=== PATIENT | female | born 1975 | race Caucasian/White ===

== ENCOUNTER → 2017-11-17 | Outpatient (REF) | payer OTHER ==
[2017-11-17 13:55] LABS: D-DIMER QUANT < 270.0 ng/ml (<500)
== END ==
LOC: M LAB REF 12:57
DX: J44.9 Chronic obstructive pulmonary disease, unspecified (principal)

== ENCOUNTER → 2017-12-18 | Outpatient (REF) | payer OTHER ==
[2017-12-18 22:51] LABS: CHLAMYDIA DNA AMPLIFICATION NEGATIVE (NEGATIVE); GC DNA AMPLIFICATION NEGATIVE (NEGATIVE)
== END ==
LOC: M SFHCLERA 17:08
DX: N91.2 Amenorrhea, unspecified (principal)

== ENCOUNTER → 2017-12-18 | Outpatient (CLI) | payer OTHER | LOC: M LRY 16:25 | DX: R06.02 Shortness of breath (principal) | CPT/HCPCS: 71046 ==

== ENCOUNTER → 2019-06-19 | Outpatient (CLI) | payer OTHER ==
[~2019-06-19] MED LIST: ACET500T15 PO; ADV250INH INH; ALBU17IN INH; ATOR1TAB19 PO; AUGM875T28 PO; BUSP10TA PO; CLEO300C2 PO; DOXY10CA PO; FLUO20CA19 PO; HAIRTAB5 PO; INSUDET SC; JANU100T PO; LEVO100I PO; LEVO137T14 PO; LEVO137T2 PO; LISI-1046 PO; MAPA500T2 PO; METF850T4 PO; MOTR200T44 PO; MULTCAP PO; OMEP10CASR PO; PRED20TA PO; PRED20TAB PO; PRENTAB43 PO; PRIL20CA9 PO; PROZ20CA11 PO; SALMDISK INH; SPIR1CAP INH; ZITH250T PO
--- NOTE | 2019-06-19 19:38 | REP ---
BILATERAL MAMMOGRAM WITH 3D TOMOSYNTHESIS. HISTORY: No family history of breast cancer. Samanta Xiao lifetime risk of breast cancer 9.8%. MLO and CC views of both breasts performed with 3D tomosynthesis. There are no prior studies. Well circumscribed nodule is seen posteriorly and inferiorly in the left breast. This measures 6 mm in maximum diameter. No other mass is seen. No clustered microcalcifications are seen. IMPRESSION: ACR 0 incomplete. There is a well circumscribed nodule measuring 6 mm in diameter in the posterior inferior left breast. Recommend spot compression views and ultrasound to further evaluate. BIRADS 0: BI-RADS/ACR category 0 mammogram, Incomplete: Need additional imaging evaluation and/or prior mammograms for comparison. This mammogram was interpreted with the aid of an FDA-approved computer-aided detection system. The patient states she/he had a clinical breast exam in 06/2019. The patient letter being requested is M0. Electronically Signed by Jasbir Almaguer MD 06/20/2019 03:37 P
== END ==
LOC: M WHC 13:34
PROVIDERS: ATTEND Nurse Practitioner Family
DX: Z12.31 Encounter for screening mammogram for malignant neoplasm of breast (principal); R92.8 Other abnormal and inconclusive findings on diagnostic imaging of breast

== ENCOUNTER → 2019-06-19 | Outpatient (REF) | payer OTHER ==
[2019-06-21 14:16] LABS: HPV HYBRID CAPTURE II Negative (Negative)
== END ==
LOC: M SFHCWAGY 14:21
PROVIDERS: ATTEND Nurse Practitioner Family
DX: Z12.4 Encounter for screening for malignant neoplasm of cervix (principal)

== ENCOUNTER → 2019-07-03 | Outpatient (CLI) | payer OTHER ==
--- NOTE | 2019-07-03 14:22 | REP ---
DIAGNOSTIC MAMMOGRAM LEFT BREAST WITH LEFT BREAST ULTRASOUND: Multiple spot compression views of the left breast are performed confirming the presence of a slightly lobulated nodule posteriorly at the 6-o'clock position of the left breast. Diameter is approximately 6 mm. No associated microcalcifications are seen. It is far posterior in the left breast. Real-time sonographic evaluation of the 6-o'clock region of the left breast does not demonstrate a discrete cystic or solid nodule. IMPRESSION: BIRADS 4: BI-RADS/ACR category 4 mammogram. Suspicious Abnormality - biopsy should be considered. ACR 4 suspicious. 6 mm nodule confirmed at 6-o'clock posterior left breast. The nodule is slightly lobulated. This could not be identified by ultrasound and is presumed to be solid. Stereotactic biopsy is recommended. Patient letter being requested is M4. Electronically Signed by Jasbir Almaguer MD 07/03/2019 04:59 P
== END ==
LOC: M RAD 12:39
PROVIDERS: ATTEND Nurse Practitioner Family
DX: Z12.31 Encounter for screening mammogram for malignant neoplasm of breast (principal); N63.25 Unspecified lump in the left breast, overlapping quadrants

== ENCOUNTER → 2019-08-16 | Outpatient (CLI) | payer OTHER ==
[~2019-08-16] MED LIST changes: +BASA100I SC; +LIDOCAINE 1% MDV 20ML VIAL As Ordered ONE; +RANI75TA52 PO
[2019-08-16 12:50] VITALS: BP 145/65
--- NOTE | 2019-08-16 15:13 | REP ---
Attempted stereotactic needle biopsy left breast. Diagnostic left breast mammography. History: Screening mammography June 19, 2019 and diagnostic mammography from July 03, 2019 were felt to be suspicious for a nodular density projecting inferiorly in the left breast. Stereotactic needle biopsy was recommended. No sonographic correlate had been found. Procedure: The patient was interviewed and informed consent was obtained. Stereotactic needle biopsy was first attempted from a medial lateral approach. Despite multiple activities director scouting views, we were not able to demonstrate the lesion in this approach. Following this a craniocaudal approach was attempted and again multiple activities director scouting views failed to demonstrate the nodule. At this point the procedure was terminated and a repeat craniocaudal and mediolateral oblique left mammogram were obtained. These did not show the target nodule. It has apparently regressed. Biopsy was therefore deferred. Impression: The target nodule is no longer visible mammographically. The biopsy therefore was deferred. Consider 6 month followup unilateral left breast mammogram. This mammogram was interpreted with the aid of an FDA-approved computer-aided detection system. Electronically Signed by Tito Cantu MD 08/16/2019 03:16 P
== END ==
LOC: M IRPRO 12:25
PROVIDERS: ATTEND Surgery
DX: N63.20 Unspecified lump in the left breast, unspecified quadrant (principal)

== ENCOUNTER → 2020-10-24 | Outpatient (CLI) | payer OTHER ==
[~2020-10-24] MED LIST changes: -FLUO20CA19 PO; +FLUO20CA22 PO; -LIDOCAINE 1% MDV 20ML VIAL As Ordered ONE; -LISI-1046 PO; +LISI2.5T2 PO
--- NOTE | 2020-10-24 16:49 | REP ---
INDICATION: R92.8 ABN LT BREAST SCREENING MAMMO,6 MO F/U. Mammography from June 19, 2019 showed a 6 mm well-circumscribed nodule at 6 o'clock in the posterior aspect of the left breast. Six-month follow-up. COMPARISON: Comparison mammography June 19, 2019, July 03, 2019. Comparison sonography July 03, 2019. TECHNIQUE: Diagnostic left breast mammography is carried out with 3D tomography and magnified focal spot-compression views. Targeted left breast sonography is repeated. This mammogram was interpreted with the aid of an FDA-approved computer-aided detection system. FINDINGS: Breast parenchyma remains predominantly fat replaced. The 6 mm well-circumscribed nodule identified on 19 June 2019 is again noted unchanged in the 1 year 5 month interval since that prior study. No other mammographic abnormality. The Volpara volumetric breast density pattern is a. Targeted ultrasound: Targeted left breast sonography is performed in the 5-7 o'clock position the left breast. Mildly heterogeneous fibroglandular background echotexture is seen. No cyst or mass is observed. Previous ultrasound was also negative. IMPRESSION: BIRADS/ACR category 3 probably benign left breast mammographic and sonographic findings. No change in 1 year 5 months in the previously identified 6 mm nodule at 6 o'clock in the left breast. This patient's Tyrer-Cuzick lifetime breast cancer risk assessment score is 9.7%. RECOMMENDATION: Diagnostic bilateral mammography recommended in 6 months. This would correspond to the 2 year follow-up geno for the nodule on the left.. The patient letter being requested is M3. The patient states she had a clinical breast exam in January of 2020. <Electronically signed by Dylan Cantu > 10/24/20 [id number]
== END ==
LOC: M WHC 14:22
PROVIDERS: ATTEND Surgery
DX: R92.8 Other abnormal and inconclusive findings on diagnostic imaging of breast (principal); N63.23 Unspecified lump in the left breast, lower outer quadrant
CPT/HCPCS: 76642; 77065; G0279

== ENCOUNTER → 2021-01-21 | Outpatient (CLI) | payer MEDICARE, MEDICAID ==
--- NOTE | 2021-01-21 16:33 | REP ---
INDICATION: RIGHT LEG LOCALIZED SWELLING, R/O DVT. COMPARISON: None. TECHNIQUE: Multiple ultrasonographic images of the deep venous structures of the right lower extremity were obtained from the inguinal ligament to the ankle. Venous compression techniques, color doppler imaging, and augmentation techniques were also obtained where appropriate. As per the ACR guidelines the anterior tibial vein can not be effectively evaluated. Only compression techniques in the calf on the peroneal and posterior tibial veins was attempted/performed. FINDINGS: There is no abnormal echogenic material seen within any of the visualized deep venous structures that would suggest acute thrombosis. Coaptation is unremarkable throughout. Doppler interrogation shows an expected response to respiratory variability and augmentation in the thigh. Compression techniques in the calf were unobtainable. The color flow images show what appears to be a normal vascular pattern throughout the thigh. IMPRESSION: There is no ultrasonographic evidence of deep venous thrombosis involving any of the visualized deep venous structures of the right lower extremity as described above. Due to technical parameters calf vein DVT can not be ruled out. <Electronically signed by Shawn Fitch > 01/21/21 [id number]
== END ==
LOC: M RAD 15:37
PROVIDERS: ATTEND Nurse Practitioner Family
DX: R22.41 Localized swelling, mass and lump, right lower limb (principal)

== ENCOUNTER → 2022-05-28 | Outpatient (CLI) | payer MEDICARE ==
[~2022-05-28] MED LIST changes: -LISI2.5T2 PO; +LISI2.5T9 PO
== END ==
LOC: M RAD 12:53
PROVIDERS: ATTEND Physician Assistant
DX: L97.812 Non-pressure chronic ulcer of other part of right lower leg with fat layer exposed (principal); I87.311 Chronic venous hypertension (idiopathic) with ulcer of right lower extremity

== ENCOUNTER → 2022-06-01 | Outpatient (CLI) | payer MEDICARE | LOC: M RAD 12:09 | PROVIDERS: ATTEND Physician Assistant | DX: I87.311 Chronic venous hypertension (idiopathic) with ulcer of right lower extremity (principal); L97.812 Non-pressure chronic ulcer of other part of right lower leg with fat layer exposed ==

== ENCOUNTER → 2022-07-02 | Outpatient (CLI) | payer MEDICARE, OTHER | LOC: M SOG 08:12 | PROVIDERS: ATTEND Orthopaedic Surgery | DX: S82.492D Other fracture of shaft of left fibula, subsequent encounter for closed fracture with routine healing (principal); S89.391D Other physeal fracture of lower end of right fibula, subsequent encounter for fracture with routine healing; S82.301D Unspecified fracture of lower end of right tibia, subsequent encounter for closed fracture with routine healing ==

== ENCOUNTER → 2022-07-13 | Outpatient (POV) | payer MEDICARE, OTHER | LOC: M TMIRPOV 09:15 | PROVIDERS: ATTEND Radiology Diagnostic Radiology | DX: I87.2 Venous insufficiency (chronic) (peripheral) (principal); L97.919 Non-pressure chronic ulcer of unspecified part of right lower leg with unspecified severity; E03.9 Hypothyroidism, unspecified; E11.59 Type 2 diabetes mellitus with other circulatory complications; F17.210 Nicotine dependence, cigarettes, uncomplicated; I10 Essential (primary) hypertension; I48.91 Unspecified atrial fibrillation; J44.9 Chronic obstructive pulmonary disease, unspecified; L98.9 Disorder of the skin and subcutaneous tissue, unspecified; R60.0 Localized edema; Z79.01 Long term (current) use of anticoagulants; Z79.4 Long term (current) use of insulin; Z79.890 Hormone replacement therapy; Z79.899 Other long term (current) drug therapy; Z88.1 Allergy status to other antibiotic agents ==

== ENCOUNTER → 2022-08-12 | Outpatient (CLI) | payer MEDICARE ==
[~2022-08-12] MED LIST changes: +HYDR-3363 PO; +LIDOCAINE 1% MDV 20ML VIAL As Ordered ONE; +LIDOCAINE 2% MDV 20ML VIAL As Ordered ONE; +MIDAZOLAM INJ 2MG/2ML VIAL As Ordered ONE; +NS 1,000 ML IV SCH; +PROMETHAZINE 25MG/ML 1ML VIAL As Ordered ONE; +diphenhydrAMINE 50MG/ML VIAL As Ordered ONE; +fentaNYL 100 MCG/2 ML INJECTION As Ordered ONE
[2022-08-12 10:20] VITALS: BP 144/69
== END ==
LOC: M IRPRO 06:30
PROVIDERS: ATTEND Radiology Diagnostic Radiology
DX: I83.811 Varicose veins of right lower extremity with pain (principal); I83.019 Varicose veins of right lower extremity with ulcer of unspecified site; I87.2 Venous insufficiency (chronic) (peripheral); Z79.4 Long term (current) use of insulin; Z79.890 Hormone replacement therapy; Z79.899 Other long term (current) drug therapy; Z88.1 Allergy status to other antibiotic agents

== ENCOUNTER → 2022-09-20 | Outpatient (CLI) | payer MEDICARE ==
[~2022-09-20] MED LIST changes: -LIDOCAINE 1% MDV 20ML VIAL As Ordered ONE; -LIDOCAINE 2% MDV 20ML VIAL As Ordered ONE; -MIDAZOLAM INJ 2MG/2ML VIAL As Ordered ONE; -NS 1,000 ML IV SCH; -PROMETHAZINE 25MG/ML 1ML VIAL As Ordered ONE; -diphenhydrAMINE 50MG/ML VIAL As Ordered ONE; -fentaNYL 100 MCG/2 ML INJECTION As Ordered ONE
== END ==
LOC: M RAD 09:28
PROVIDERS: ATTEND Surgery
DX: I87.311 Chronic venous hypertension (idiopathic) with ulcer of right lower extremity (principal)

== ENCOUNTER → 2023-07-21 | Outpatient (CLI) | payer MEDICARE, MEDICAID ==
[~2023-07-21] MED LIST changes: +ALBU8.5H; +ATOR1TAB21; +CALCIUM MAG ZINC; +DULA4.5P; +ELIQ5TAB; +FENO160T10; +FLUT1BLS8; +FOLI1TAB11 PO; +JANU100T; +LEVO175T2; +LISI10TA22 PO; +METO1TAB7; +POTA8CAP10 PO; +SYMB80INH
== END ==
LOC: M CARPUL 12:35
PROVIDERS: ATTEND Nurse Practitioner Family
DX: Z12.2 Encounter for screening for malignant neoplasm of respiratory organs (principal); F17.218 Nicotine dependence, cigarettes, with other nicotine-induced disorders; Z79.899 Other long term (current) drug therapy; E11.65 Type 2 diabetes mellitus with hyperglycemia; E03.9 Hypothyroidism, unspecified; E78.00 Pure hypercholesterolemia, unspecified; G47.00 Insomnia, unspecified

== ENCOUNTER → 2023-07-21 | Outpatient (CLI) | payer MEDICARE, MEDICAID ==
[2023-07-21 13:49] LABS: HEMOGLOBIN 13.1 g/dl (12.0-15.5); MEAN CORPUSCULAR HEMOGLOBIN 28.4 pg (27.0-33.0); MEAN CORPUSCULAR HGB CONC 30.5 g/dl (32.0-36.5); MEAN CORPUSCULAR VOLUME 93.3 fl (80.0-96.0); PLATELET COUNT, AUTOMATED 373 10^3/uL (150-450); RED BLOOD COUNT 4.61 10^6/uL (4.00-5.40); WHITE BLOOD COUNT 8.2 10^3/uL (4.0-10.0)
[2023-07-21 14:01] LABS: HEMOGLOBIN A1c 7.7 % (4.0-6.0)
[2023-07-21 14:13] LABS: CREATININE, URINE 96.2 MG/DL; MAU/CREAT RATIO 6.2 MCG/MG (0.0-30.0)
[2023-07-21 14:14] LABS: ALBUMIN 3.2 G/DL (3.2-5.2); ALKALINE PHOSPHATASE 107 U/L (46-116); ALT/SGPT 13 U/L (7.0-40); AST/SGOT 9 U/L (<34); BILIRUBIN,TOTAL 0.2 MG/DL (0.3-1.2); BLOOD UREA NITROGEN 19 MG/DL (9-23); CALCIUM LEVEL 9.9 MG/DL (8.5-10.1); CARBON DIOXIDE LEVEL 39 MMOL/L (20-31); CHLORIDE LEVEL 101 MMOL/L (98-107); CHOLESTEROL LEVEL 154 MG/DL (<200); CHOLESTEROL RISK RATIO 4.33 (<5); CREATININE FOR GFR 0.77 MG/DL (0.55-1.30); GLOMERULAR FILTRATION RATE > 60.0 (>51); GLUCOSE, FASTING 222 MG/DL (60-100); HDL CHOLESTEROL 35.5 MG/DL (>40); LDL CHOLESTEROL 97.7 MG/DL (<100); NON-HDL-C 118.5 MG/DL; POTASSIUM SERUM 3.9 MMOL/L (3.5-5.1); SODIUM LEVEL 141 MMOL/L (136-145); TOTAL PROTEIN 6.7 G/DL (5.7-8.2); TRIGLYCERIDES LEVEL 104 MG/DL (<150)
[2023-07-21 14:15] LABS: THYROID STIMULATING HORMONE 3.482 uIU/ML (0.55-4.78)
[2023-07-21 14:16] LABS: FREE T4 1.43 NG/DL (0.89-1.76)
== END ==
LOC: M LAB 12:41
PROVIDERS: ATTEND Registered Nurse
DX: E11.65 Type 2 diabetes mellitus with hyperglycemia (principal); E03.9 Hypothyroidism, unspecified; E78.00 Pure hypercholesterolemia, unspecified; G47.00 Insomnia, unspecified; Z12.2 Encounter for screening for malignant neoplasm of respiratory organs; F17.218 Nicotine dependence, cigarettes, with other nicotine-induced disorders

== ENCOUNTER → 2024-01-03 | Outpatient (CLI) | payer MEDICAID, MEDICARE ==
[~2024-01-03] MED LIST changes: +BUSP15TA47 PO; +CETI-24; +FLUO-365 PO; -FLUO20CA22 PO; +FURO40TA2; +INSU100I24; +KETO2SHA8; +NYST1POW9
== END ==
LOC: M RAD 11:31
PROVIDERS: ATTEND Registered Nurse
DX: M54.50 Low back pain, unspecified (principal)

== ENCOUNTER → 2024-05-07 | Outpatient (CLI) | payer MEDICARE, MEDICAID | LOC: M SLEEP 14:19 | PROVIDERS: ATTEND Nurse Practitioner Family | DX: G47.33 Obstructive sleep apnea (adult) (pediatric) (principal); G47.61 Periodic limb movement disorder ==